=== PATIENT | male | born 1980 | race Caucasian/White ===

== ENCOUNTER 2021-01-19 09:04 | Outpatient (CLI) | payer OTHER | END 2021-01-19 23:59 | disposition home or self-care (01) | LOC: LAB 09:04 | PROVIDERS: ATTEND Specialist | DX: Z01.812 Encounter for preprocedural laboratory examination (principal); Z20.822 Contact with and (suspected) exposure to COVID-19 | CPT/HCPCS: C9803; U0003 ==

== ENCOUNTER 2021-01-22 07:42 | Day surgery (SDC) | payer OTHER ==
[2021-01-22] MEDS ORDERED: BACITRACIN 50000 UNITS/VIAL ONE (08:00)
[2021-01-22] MEDS ORDERED: BUPIVACAINE 0.5 % PF 150 MG/30 ML VIAL ONE (08:00)
[2021-01-22] MEDS ORDERED: FENTANYL PF 250MCG/5ML AMPUL ONE (08:45)
[2021-01-22] MEDS ORDERED: MIDAZOLAM HCL 2 MG/2ML VIAL ONE (08:46)
[2021-01-22] MEDS ORDERED: HYDROCODONE/APAP 5/325MG TABLET ONE (11:27)
[2021-01-22] MEDS ORDERED: ONDANSETRON 4 MG TAB.RAPDIS ONE (12:20)
== END 2021-01-22 12:45 | disposition home or self-care (01) ==
LOC: DS 07:42
PROVIDERS: ATTEND Specialist
DX: G56.02 Carpal tunnel syndrome, left upper limb (principal); G56.22 Lesion of ulnar nerve, left upper limb; Z90.89 Acquired absence of other organs; E66.01 Morbid (severe) obesity due to excess calories
CPT/HCPCS: 64718; 64721; A4565; A6402; J0690; J1885; J2250; J2405; J2704; J2765; J3010; J3490; Q0162